=== PATIENT | male | born 1990 | race Caucasian/White ===

== ENCOUNTER 2022-10-13 12:41 | Emergency (ER) | payer BC ==
[2022-10-13] MEDS ORDERED: IBUPROFEN 400 MG TABLET (FP) PO ONE ×2 (12:54→13:29)
[2022-10-13] MEDS ORDERED: METOCLOPRAMIDE HCL INJECTION 10 MG/2 ML VIAL IVPUSH ONE (12:54)
[2022-10-13] MEDS ORDERED: METOCLOPRAMIDE HCL INJECTION 10 MG/2 ML VIAL ONE (13:03)
[2022-10-13] MEDS ORDERED: MECLIZINE HCL 25 MG TABLET (FP) PO ONE ×2 (13:13→15:23)
[2022-10-13 13:26] VITALS: BP 128/88; PULSE 69; RESP 18; TEMP 98.1; BMI 30.2
[2022-10-13] MEDS ORDERED: MECLIZINE HCL 25 MG TABLET (FP) ONE ×2 (13:41→15:48)
== END 2022-10-13 16:38 | disposition home or self-care (01) ==
LOC: FER 12:41
PROC: 3E033GC Introduction of Other Therapeutic Substance into Peripheral Vein, Percutaneous Approach (ICD-10-PCS; principal; 2022-10-13)
DX: R42 Dizziness and giddiness (principal); R51.9 Headache, unspecified
CPT/HCPCS: 99284-25